=== PATIENT | female | born 1940 | race Caucasian/White ===

== ENCOUNTER 2017-11-24 09:44 | Day surgery (SDC) | payer OTHER ==
[~2017-11-24 09:44] MED LIST: CEFAZOLIN 2 GM/50 ML (PMX) 50 ML IVPB
[2017-11-24] MEDS ORDERED: MIDAZOLAM 1 MG/ML 2 ML INJ (10:55)
[2017-11-24] MEDS ORDERED: CEFAZOLIN 1 GM INJ (10:56)
[2017-11-24] MEDS ORDERED: PROPOFOL 20 ML (10:57)
[2017-11-24] MEDS ORDERED: LIDOCAINE 2% (SDV) 5 ML INJ (10:57)
[2017-11-24] MEDS ORDERED: BUPIVACAINE 0.5% (SDV) 30 ML INJ (10:57)
[2017-11-24 10:59] LABS: POTASSIUM 5.4 mmol/L (3.5-5.1)
[2017-11-24] MEDS: LIDOCAINE 1% (MPF) 30 ML INJ INJ (13:00)
[2017-11-24] MEDS: HEPARIN 1000 UNITS/ML 10 ML INJ IRR (13:00)
[2017-11-24] MEDS: THROMBIN 5000 UNIT VIAL TOP (13:00)
[2017-11-24] MEDS: GELATIN SIZE 100 SPONGE TOP (13:00)
[2017-11-24] MEDS ORDERED: THROMBIN 5000 UNIT VIAL (13:03)
[2017-11-24] MEDS ORDERED: GELATIN SIZE 100 SPONGE (13:03)
[2017-11-24] MEDS ORDERED: FENTAnyl 50 MCG/ML VIAL (13:55)
[2017-11-24] MEDS ORDERED: EPHEDrine SULFATE 50 MG/5 ML SYG (14:16)
[2017-11-24] MEDS ORDERED: LIDOCAINE 1% (MPF) 30 ML INJ (14:31)
[2017-11-24] MEDS ORDERED: ONDANSETRON 4 MG INJ IV (15:30)
[2017-11-24] MEDS ORDERED: FENTAnyl 50 MCG/ML VIAL IV (15:30)
== END 2017-11-26 10:09 | disposition home or self-care (01) ==
LOC: SDS 09:44
DX: I12.0 Hypertensive chronic kidney disease with stage 5 chronic kidney disease or end stage renal disease (principal); N18.6 End stage renal disease; E11.9 Type 2 diabetes mellitus without complications; E78.5 Hyperlipidemia, unspecified
CPT/HCPCS: 36821; 71045; 82962; 84132; 93005